=== PATIENT | male | born 1935 | race Caucasian/White ===

== ENCOUNTER 2018-12-30 15:11 | Emergency (ER) | payer MEDICARE, BC ==
--- NOTE | 2018-12-30 15:32 | EDM.PDOC ---
ED HPI GENERAL MEDICAL PROBLEM - General Chief Complaint: Back Pain or Injury Stated Complaint: BACK PAIN AFTER A FALL Time Seen by Provider: 12/30/18 15:20 Source of Information: Reports: Patient, Family History Limitations: Reports: Altered Mental Status (dementia) - History of Present Illness INITIAL COMMENTS - FREE TEXT/NARRATIVE: Porfirio comes into [facility] ED following a fall this afternoon while getting up from a chair. His can went in one direction, and he fell onto R CVA area, striking a coffee table on the way down. There was no LOC. He has pain and tenderness with visible ecchymoses. He has been given no meds. Porfirio has a hx of dementia and not a reliable historian. His spouse and daughter provide collateral information. RIGHT BACK Pain Score (Numeric/FACES): 3 - Related Data Allergies Allergy/AdvReac Type Severity Reaction Status Date / Time No Known Allergies Allergy Verified 12/30/18 15:47 Past Medical History Neurological History: Reports: Other (See Below) Other Neuro History: dementia - Past Surgical History Musculoskeletal Surgical History: Reports: Knee Replacement, Other (See Below) Other Musculoskeletal Surgeries/Procedures:: R TKA ~12 yrs ago. R femur fx 30+ yrs ago requiring traction and resulted in 3" shortening of RLE. L hip pinning 07-23-17 ED ROS GENERAL - Review of Systems Review Of Systems: ROS reveals no pertinent complaints other than HPI. ED EXAM, GENERAL - Physical Exam Exam: See Below Exam Limited By: Altered Mental Status (dementia) General Appearance: Alert, WD/WN, No Apparent Distress, Other (subdued behavior) Eye Exam: Bilateral Eye: EOMI, Normal Inspection, PERRL Ears: Normal External Exam Nose: Normal Inspection Throat/Mouth: Normal Inspection Head: Atraumatic, Normocephalic Neck: Normal Inspection, Non-Tender, Full Range of Motion Respiratory/Chest: No Respiratory Distress, No Accessory Muscle Use, Decreased Breath Sounds, Other (tenderness overly R CVA with visible ecchymoses, no crepitus) Cardiovascular: Regular Rate, Rhythm, No Murmur GI/Abdominal: Normal Bowel Sounds, Soft, Non-Tender, No Organomegaly, No Distention, No Mass (Male) Exam: Deferred Rectal (Males) Exam: Deferred Back Exam: CVA Tenderness (R) Extremities: Normal Inspection Neurological: Alert, CN II-XII Intact, No Motor/Sensory Deficits, Slow to Respond, Memory Loss Remote Events, Memory Loss Recent Events Psychiatric: Flat Affect Skin Exam: Warm, Dry, Ecchymosis Lymphatic: No Adenopathy Course - Vital Signs Text/Narrative:: Following assessment, I reviewed R rib detail x rays noting fx at #9,#10, with normal cardiac profile and lungs fully expanded. The screening UA was neg for hematuria. Last Recorded V/S: Last Vital Signs Temp 36.8 C 12/30/18 15:15 Pulse 57 L 12/30/18 15:15 Resp 15 12/30/18 15:15 BP 116/62 12/30/18 15:15 Pulse Ox 97 12/30/18 15:15 - Orders/Labs/Meds Orders: Active Orders 24 hr Category Date Time Status Ribs 3V wo Chest Rt [CR] Stat Exams 12/30/18 15:29 Taken Labs: Laboratory Tests 12/30/18 Range/Units 16:55 Urine Color Yellow (YELLOW) Urine Appearance Clear (CLEAR) Urine pH 5.0 (5.0-6.5) Ur Specific [place] 1.015 (1.010-1.025) Urine Protein Negative (NEGATIVE) mg/dL Urine Glucose (UA) Normal (NORMAL) mg/dL Urine Ketones Negative (NEGATIVE) mg/dL Urine Occult Blood Negative (NEGATIVE) Urine Nitrite Negative (NEGATIVE) Urine Bilirubin Negative (NEGATIVE) Urine Urobilinogen Normal (NEGATIVE) mg/dL Ur Leukocyte Esterase Negative (NEGATIVE) Urine RBC 0-5 (0-5) Urine WBC 0-5 (0-5) Ur Squamous Epith Cells Occasional (NS,R,O) Urine Bacteria Few H (NS) Urine Mucus Few H (NS) Departure - Departure Time of Disposition: 17:00 Disposition: Home, Self-Care 01 Condition: Fair Clinical Impression: Multiple rib fractures Qualifiers: Encounter type: initial encounter Fracture type: closed Laterality: right Qualified Code(s): S22.41XA - Multiple fractures of ribs, right side, initial encounter for closed fracture - Discharge Information *PRESCRIPTION DRUG MONITORING PROGRAM REVIEWED*: Not Applicable *COPY OF PRESCRIPTION DRUG MONITORING REPORT IN PATIENT ALEXANDER: Not Applicable Instructions: Rib Fracture, [id number] Referrals: Kishor Candelario MD [Primary Care Provider] - Forms: ED Department Discharge Additional Instructions: HE HAS RIB FRACTURE OF RIB 9&10 ON THE RT SIDE. TAKE TYLENOL OR IBUPROFEN NECESSARY FOR PAIN. - Problem List & Annotations (1) Multiple rib fractures SNOMED Code(s): 8093659 Code(s): S22.49XA - MULTIPLE FRACTURES OF RIBS, UNSP SIDE, INIT FOR CLOS FX Status: Acute Current Visit: Yes Annotation/Comment:: I suggested ice packs for comfort, Tylenol or NSAIDs for pain, and rest. Qualifiers: Encounter type: initial encounter Fracture type: closed Laterality: right Qualified Code(s): S22.41XA - Multiple fractures of ribs, right side, initial encounter for closed fracture - Problem List Review Problem List Initiated/Reviewed/Updated: Yes - My Orders Last 24 Hours: My Active Orders 12/30/18 15:29 Ribs 3V wo Chest Rt [CR] Stat - Assessment/Plan Last 24 Hours: My Active Orders 12/30/18 15:29 Ribs 3V wo Chest Rt [CR] Stat Plan: Follow up with PCP if needed.
== END 2018-12-30 17:20 | disposition home or self-care (01) ==
LOC: FB.ED 15:11
DX: S22.41XA Multiple fractures of ribs, right side, initial encounter for closed fracture (principal); F03.90 Unspecified dementia, unspecified severity, without behavioral disturbance, psychotic disturbance, mood disturbance, and anxiety; W01.198A Fall on same level from slipping, tripping and stumbling with subsequent striking against other object, initial encounter
CPT/HCPCS: 71101-RT; 81001; 99283-25

== ENCOUNTER 2019-09-29 10:40 | Emergency (ER) | payer MEDICARE, BC ==
[2019-09-29] MEDS ORDERED: Sodium Chloride 0.9% 10 ML Syringe FLUSH PRN (11:16)
[2019-09-29] MEDS ORDERED: Ketorolac 15 MG/ML SDV IVPUSH STA (11:18)
[2019-09-29] MEDS ORDERED: Sodium Chloride 0.9% 1,000 ML IV SCH (11:30)
[2019-09-29] MEDS ORDERED: Ketorolac 30 MG/ML SDV IVPUSH ONE (11:50)
--- NOTE | 2019-09-29 12:31 | EDM.PDOC ---
ED HPI GENERAL MEDICAL PROBLEM - General Chief Complaint: Head Injury Stated Complaint: HEAD INJURY,ABD PAIN Time Seen by Provider: 09/29/19 10:45 Source of Information: Reports: Patient History Limitations: Reports: No Limitations - History of Present Illness INITIAL COMMENTS - FREE TEXT/NARRATIVE: Patient presented to the ED because he tripped and fell 3 days ago and hit the left side of his head on the floor. The is no LOC after the fall. He c/o mild headache over the left parietal area. Today he c/o LLQ pain,denies any nausea or vomiting. There is no changes in bowel movements or urinary symptoms. - Related Data Allergies Allergy/AdvReac Type Severity Reaction Status Date / Time No Known Allergies Allergy Verified 09/29/19 11:00 Home Meds: Home Meds Aspirin [Halfprin] 81 mg PO DAILY 09/29/19 [History] Calcium Carbonate [Calcium] 500 mg PO DAILY 09/29/19 [History] Cholecalciferol (Vitamin D3) [Vitamin D3] 1,000 unit PO DAILY 09/29/19 [History] Donepezil HCl 10 mg PO BEDTIME 09/29/19 [History] Furosemide [Lasix] 20 mg PO DAILY 09/29/19 [History] Memantine HCl 21 mg PO BEDTIME 09/29/19 [History] Metoprolol Tartrate 50 mg PO DAILY 09/29/19 [History] Sennosides [Senna] 8.6 mg PO BID 09/29/19 [History] Tamsulosin [Flomax] 0.4 mg PO DAILY 09/29/19 [History] Past Medical History HEENT History: Reports: Head Other HEENT History: head injury post fall Cardiovascular History: Reports: Hypertension Gastrointestinal History: Reports: Other (See Below) Other Gastrointestinal History: abdominal pain Neurological History: Reports: Other (See Below) Other Neuro History: dementia Psychiatric History: Reports: Dementia - Past Surgical History Musculoskeletal Surgical History: Reports: Knee Replacement, Other (See Below) Other Musculoskeletal Surgeries/Procedures:: R TKA ~12 yrs ago. R femur fx 30+ yrs ago requiring traction and resulted in 3" shortening of RLE. L femur pinning 07-23-17 Social & Family History - Family History Family Medical History: Unobtainable - Tobacco Use Smoking Status *Q: Never Smoker Second Hand Smoke Exposure: No - Caffeine Use Caffeine Use: Reports: Coffee - Recreational Drug Use Recreational Drug Use: No ED ROS GENERAL - Review of Systems Review Of Systems: See Below Constitutional: Reports: No Symptoms HEENT: Reports: No Symptoms Respiratory: Reports: No Symptoms Cardiovascular: Reports: No Symptoms Endocrine: Reports: No Symptoms GI/Abdominal: Reports: No Symptoms : Reports: No Symptoms Musculoskeletal: Reports: No Symptoms Skin: Reports: No Symptoms Neurological: Reports: No Symptoms Psychiatric: Reports: No Symptoms ED EXAM, HEAD INJURY - Physical Exam Exam: See Below Exam Limited By: No Limitations General Appearance: Alert, No Apparent Distress Head: Atraumatic, Normocephalic Ears: Normal External Exam, Normal Canal, Hearing Grossly Normal Nose: Normal Inspection, Normal Mucousa, No Blood Throat/Mouth: Normal Inspection, Normal Lips Neck: Non-Tender, Full Range of Motion Respiratory: No Respiratory Distress, Lungs Clear, Normal Breath Sounds, No Accessory Muscle Use Cardiovascular: Normal Peripheral Pulses, Regular Rate, Rhythm, No Edema GI/Abdominal Exam: Normal Bowel Sounds, Soft, No Organomegaly, Other ( tenderness over the LLQ) Back Exam: Normal Inspection, Full Range of Motion Extremities: Normal Inspection, Normal Range of Motion Course - Vital Signs Text/Narrative:: Headt CT-neg Abd/pevis CT- labs and CT result was discussed with patient and verbalized full understanding NS 1 L bolus Last Recorded V/S: Last Vital Signs Temp 36.4 C 09/29/19 14:30 Pulse 54 L 09/29/19 14:30 Resp 21 H 09/29/19 14:30 BP 138/59 L 09/29/19 14:30 Pulse Ox 96 09/29/19 14:30 - Orders/Labs/Meds Labs: Laboratory Tests 09/29/19 09/29/19 09/29/19 Range/Units 11:31 11:31 11:31 WBC 5.5 (4.5-12.0) X10-3/uL RBC 4.05 L (4.30-5.75) x10(6)uL Hgb 12.5 L (13.5-17.8) g/dL Hct 36.7 (30.0-51.3) % MCV 90.5 (80-96) fL MCH 30.9 (27.7-33.6) pg MCHC 34.1 (32.2-35.4) g/dL RDW 15.2 (11.5-15.5) % Plt Count 189 (125-369) X10(3)uL MPV 6.7 L (7.4-10.4) fL Neut % (Auto) 68.7 (46-82) % Lymph % (Auto) 15.2 (13-37) % [place] % (Auto) 13.6 H (4-12) % Eos % (Auto) 2 (1.0-5.0) % Baso % (Auto) 1 (0-2) % Neut # (Auto) 3.9 (1.6-8.3) # Lymph # (Auto) 0.8 (0.6-5.0) # [place] # (Auto) 0.7 (0.0-1.3) # Eos # (Auto) 0.1 (0.0-0.8) # Baso # (Auto) 0.0 (0.0-0.2) # Sodium 141 (135-145) mmol/L Potassium 4.4 (3.5-5.3) mmol/L Chloride 103 (100-110) mmol/L Carbon Dioxide 27 (21-32) mmol/L BUN 19 H (7-18) mg/dL Creatinine 1.6 H (0.70-1.30) mg/dL Est Cr Clr Drug Dosing 37.45 mL/min Estimated GFR (MDRD) 41 L (>60) BUN/Creatinine Ratio 11.9 (9-20) Glucose 96 (80-116) mg/dL Calcium 8.7 (8.6-10.2) mg/dL Total Bilirubin 0.6 (0.1-1.3) mg/dL AST 19 (5-25) IU/L ALT 15 (12-36) U/L Alkaline Phosphatase 69 (56-112) IU/L Total Protein 7.4 (6.0-8.0) g/dL Albumin 3.3 (3.2-4.6) g/dL Globulin 4.1 g/dL Albumin/Globulin Ratio 0.8 Amylase 86 (25-115) U/L Lipase 228 (73-393) U/L Urine Color (YELLOW) Urine Appearance (CLEAR) Urine pH (5.0-6.5) Ur Specific [place] (1.010-1.025) Urine Protein (NEGATIVE) mg/dL Urine Glucose (UA) (NORMAL) mg/dL Urine Ketones (NEGATIVE) mg/dL Urine Occult Blood (NEGATIVE) Urine Nitrite (NEGATIVE) Urine Bilirubin (NEGATIVE) Urine Urobilinogen (NEGATIVE) mg/dL Ur Leukocyte Esterase (NEGATIVE) Urine RBC (0-5) Urine WBC (0-5) Ur Squamous Epith Cells (NS,R,O) Urine Bacteria (NS) Urine Mucus (NS) 09/29/19 Range/Units 12:00 WBC (4.5-12.0) X10-3/uL RBC (4.30-5.75) x10(6)uL Hgb (13.5-17.8) g/dL Hct (30.0-51.3) % MCV (80-96) fL MCH (27.7-33.6) pg MCHC (32.2-35.4) g/dL RDW (11.5-15.5) % Plt Count (125-369) X10(3)uL MPV (7.4-10.4) fL Neut % (Auto) (46-82) % Lymph % (Auto) (13-37) % [place] % (Auto) (4-12) % Eos % (Auto) (1.0-5.0) % Baso % (Auto) (0-2) % Neut # (Auto) (1.6-8.3) # Lymph # (Auto) (0.6-5.0) # [place] # (Auto) (0.0-1.3) # Eos # (Auto) (0.0-0.8) # Baso # (Auto) (0.0-0.2) # Sodium (135-145) mmol/L Potassium (3.5-5.3) mmol/L Chloride (100-110) mmol/L Carbon Dioxide (21-32) mmol/L BUN (7-18) mg/dL Creatinine (0.70-1.30) mg/dL Est Cr Clr Drug Dosing mL/min Estimated GFR (MDRD) (>60) BUN/Creatinine Ratio (9-20) Glucose (80-116) mg/dL Calcium (8.6-10.2) mg/dL Total Bilirubin (0.1-1.3) mg/dL AST (5-25) IU/L ALT (12-36) U/L Alkaline Phosphatase (56-112) IU/L Total Protein (6.0-8.0) g/dL Albumin (3.2-4.6) g/dL Globulin g/dL Albumin/Globulin Ratio Amylase (25-115) U/L Lipase (73-393) U/L Urine Color Yellow (YELLOW) Urine Appearance Clear (CLEAR) Urine pH 6.5 (5.0-6.5) Ur Specific [place] 1.010 (1.010-1.025) Urine Protein Negative (NEGATIVE) mg/dL Urine Glucose (UA) Normal (NORMAL) mg/dL Urine Ketones Negative (NEGATIVE) mg/dL Urine Occult Blood Negative (NEGATIVE) Urine Nitrite Negative (NEGATIVE) Urine Bilirubin Negative (NEGATIVE) Urine Urobilinogen Normal (NEGATIVE) mg/dL Ur Leukocyte Esterase Negative (NEGATIVE) Urine RBC 0-5 (0-5) Urine WBC 0-5 (0-5) Ur Squamous Epith Cells Occasional (NS,R,O) Urine Bacteria Few H (NS) Urine Mucus Moderate H (NS) Meds: Medications Discontinued Medications Generic Name Dose Route Start Last Admin Trade Name Freq PRN Reason Stop Dose Admin Sodium Chloride 1,000 mls @ 999 mls/hr 09/29/19 11:30 09/29/19 11:40 Normal Saline IV 999 mls/hr ASDIRECTED HUBERT Administration Iopamidol 100 ml 09/29/19 13:25 09/29/19 13:42 Isovue-370 (76%) IV 09/29/19 13:26 95 ml ONETIME ONE Administration Ketorolac Tromethamine 15 mg 09/29/19 11:18 09/29/19 11:53 Toradol IVPUSH 09/29/19 11:19 Not Given NOW STA Ketorolac Tromethamine 15 mg 09/29/19 11:50 09/29/19 11:55 Toradol IVPUSH 09/29/19 11:51 15 mg ONETIME ONE Administration Sodium Chloride 10 ml 09/29/19 11:16 09/29/19 11:40 Saline Flush FLUSH 10 ml ASDIRECTED PRN Administration Keep Vein Open Departure - Departure Time of Disposition: 14:15 Disposition: Home, Self-Care 01 Condition: Good Clinical Impression: Closed head injury, Abdominal muscle strain - Discharge Information Instructions: Head Injury, Adult, Abdominal Pain, Adult, [id number] Referrals: Andree,Kishor, MD [Primary Care Provider] - Forms: ED Department Discharge Additional Instructions: read discharge instructions on headache and abdominal muscle strain take tylenol 1000 mg every 8 hours as needed for pain follow up as needed Sepsis Event Note - Evaluation Sepsis Screening Result: No Definite Risk - Focused Exam Date Exam was Performed: 09/30/19 Time Exam was Performed: 13:16
[2019-09-29] MEDS ORDERED: Iopamidol 755 Mg/ML 100 ML Bottle IV ONE (13:25)
--- NOTE | 2019-09-29 13:51 | CT ---
INDICATION: Fall, confusion, head injury 3 days prior, hit above left ear. CT HEAD WITHOUT CONTRAST: Spiral 3.75 mm axial sections were obtained through the brain without contrast with sagittal and coronal reconstructions 09/29/2019 - no comparisons. Total exam DLP was 2649.66 mGy-cm. No evidence of a cranial fracture site is noted. Paranasal sinuses and mastoid air cells were fairly well aerated with one opacified ethmoidal air cell on the left of questionable significance. The orbits appear to be intact. A small scalp hematoma is noted in the posterior left parietal area. Calcifications are noted in the left vertebral and internal carotid arteries. The ventricles are prominent compatible with central atrophy. The cortical sulci was somewhat prominent in the parietal lobe area compatible with central and cortical atrophy. There is suggestion of some very minimal indistinct areas of decreased in the white matter suggesting a mild degree of microvascular disease. No definite acute intracranial abnormality was identified - no bleeding site or hematoma was seen. IMPRESSION: 1. No acute intracranial abnormality identified. 2. Cerebrovascular disease is suggested with a mild degree of microvascular disease type changes. 3. Central and parietal cortical atrophy. Report was called to at 1323 hours. [facility]
--- NOTE | 2019-09-29 14:40 | CT ---
INDICATION: Left lower quadrant pain after trauma - fall. CT ABDOMEN AND PELVIS WITH IV CONTRAST: Spiral 3.75 mm axial sections were obtained through the abdomen and pelvis with 100 cc Isovue 370 (at 1.8 cc per second) with sagittal and coronal reconstructions 09/29/2019 - no comparisons. Total exam DLP was 1683.65 mGy-cm. Pleuroparenchymal changes noted at both lung bases which may represent pneumonia and pleuritis and possibly fibrosis - correlate clinically. The presence of consolidation is more prominent at the left lung base. There are calcifications at the left lung base, the possibility of process such as asbestosis would a consideration with this appearance. It should be correlated clinically. Multiple low density lesions are noted in the liver most likely representing simple cysts. No gallstones were demonstrated - the gallbladder was not enlarged. The adrenal glands appeared normal. The spleen and pancreas appeared normal. There is a probable simple cyst arising from the upper middle pole lateral cortex of the left kidney, mostly exophytic most likely representing a simple cyst. A followup study may be warranted to exclude other than benign disease, however. There is fat stranding of minimal degree on the right and for the most part on the left with slightly more prominent fat stranding at the left lower pole of the kidney. No definite posttraumatic change is seen in the kidneys. spleen or pancreas. No retroperitoneal masses were identified. The appendix appeared normal visualized on coronal images 45 through 48 and axial images 101 through 109. Calcifications are noted in the aorta, iliac and right femoral arteries, as well as minimally in the splenic artery. No evidence of free air or bowel obstruction was identified. No posttraumatic changes in the bowel were identified. Minimal sigmoid diverticulosis is noted without definite evidence of diverticulitis. The urinary bladder showed evidence of thickening of the wall. There is some minimal calcification in the prostate which does not appear grossly enlarged. There are some phleboliths in the lower pelvis. Bilateral inguinal hernias of small size are noted including only fat. No ventral hernia was seen. The heart appeared enlarged. No pericardial effusion was seen. Coronary artery calcifications are noted. Aortic valve calcifications are noted. No evidence of AAA is identified. Hypertrophic degenerative changes are noted in the thoracolumbosacral spine with a compression fracture of indeterminate age at L1 with approximately 40% loss of cranial endplate and anterior volume. No additional mass lesions, organomegaly or free fluid collections were identified in the abdomen pelvis. IMPRESSION: 1. Bibasilar pleuroparenchymal changes may be on the basis of pneumonia and pleuritis, although some atelectasis and fibrosis could also be present. 2. ASD/ASHD. 3. Renal fascial thickening suggesting some renal cortical scarring with no obstructive uropathy or definite calculi - small cyst noted on the left, likely simple but could be reexamined to confirm simple cyst status. 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 5. Some thickening of the urinary bladder wall which could represent cystitis, it should be correlated clinically. 6. Bilateral inguinal hernias of small size including only fat. 7. Degenerative changes at the hip joints, moderately severe on the right, milder on the left. 8. No findings to strongly suggest an acute posttraumatic change in the abdomen or pelvis. Report was called to Dr. Qureshi at 1405 hours. [facility]
== END 2019-09-29 14:30 | disposition home or self-care (01) ==
LOC: FB.ED 10:40
DX: S09.90XA Unspecified injury of head, initial encounter (principal); S39.011A Strain of muscle, fascia and tendon of abdomen, initial encounter; Z79.82 Long term (current) use of aspirin; I10 Essential (primary) hypertension; Z79.899 Other long term (current) drug therapy; W01.0XXA Fall on same level from slipping, tripping and stumbling without subsequent striking against object, initial encounter
CPT/HCPCS: 36415; 70450; 74177; 80053; 81001; 82150; 83690; 85025; 96361; 96374; 99284; J1885; J7030; Q9967; 99283

== ENCOUNTER 2020-04-23 13:18 | Inpatient (IN) | payer MEDICARE, BC ==
--- NOTE | 2020-04-23 13:45 | EDM.PDOC ---
ED HPI GENERAL MEDICAL PROBLEM - General Stated Complaint: FALL X2DAYS Time Seen by Provider: 04/23/20 13:40 Source of Information: Reports: EMS, Family History Limitations: Reports: Other (Patient with dementia and cannot provide me with any information.) - History of Present Illness INITIAL COMMENTS - FREE TEXT/NARRATIVE: 84-year-old male who according to the has had progressive weakness over the past 2 weeks. He apparently has had multiple falls during this time. The reports that he has dementia and his confusion and dementia has not really seemed to worsen but over the summer he has had a decline in his mobility with the most significant decline being over the past 2 weeks. She is his primary caregiver and she has found it increasingly difficult to help him ambulate to the bathroom and helping him with his ADLs. Apparently on 04/21/2020, he fell in the garage after they had gone to the clinic to get a flu vaccine and he struck his head. There was a laceration to the occiput but they treated it conservatively and she reports that there has really been real change in his mental status but she also feels that over the past few days his mobility has worsened even more and she reports that she has reached a point where she does not feel that she can care for him at home. No reported fever. No nausea or vomiting. The patient has been eating and drinking normally. No reported pain. The patient denies any pain and he appears at a 0/10 level of pain by observation. The patient cannot provide me with any history. All of the history comes from the patient's . There are no other associated signs or symptoms. There are no other modifying factors. Onset: Other (Progressive weakness over the past 2 weeks with worsening weakness over the past 2 days. 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 (see below) (Nothing.) - Related Data Allergies Allergy/AdvReac Type Severity Reaction Status Date / Time No Known Allergies Allergy Verified 09/29/19 11:00 Home Meds: Home Meds Aspirin [Halfprin] 81 mg PO DAILY 09/29/19 [History] Calcium Carbonate [Calcium] 500 mg PO DAILY 09/29/19 [History] Cholecalciferol (Vitamin D3) [Vitamin D3] 1,000 unit PO DAILY 09/29/19 [History] Donepezil HCl 10 mg PO BEDTIME 09/29/19 [History] Furosemide [Lasix] 20 mg PO DAILY 09/29/19 [History] Memantine HCl 21 mg PO BEDTIME 09/29/19 [History] Metoprolol Tartrate 50 mg PO DAILY 09/29/19 [History] Sennosides [Senna] 8.6 mg PO BID 09/29/19 [History] Tamsulosin [Flomax] 0.4 mg PO DAILY 09/29/19 [History] Past Medical History Cardiovascular History: Reports: Hypertension Genitourinary History: Reports: BPH Musculoskeletal History: Reports: Other (See Below) (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 R femur fx 30+ yrs ago requiring traction and resulted in 3" shortening of RLE. L femur pinning 07-23-17 Social & Family History - Family History Family Medical History: Unobtainable - Tobacco Use Smoking Status *Q: Unknown Ever Smoked (Nonsmoker.) - Caffeine Use Caffeine Use: Reports: Coffee - Alcohol Use Alcohol Use History: No - Living Situation & Occupation Living situation: Reports: Occupation: Retired Social History Comment: Lives at home with his who is his primary caregiver. ED ROS GENERAL - Review of Systems Review Of Systems: Unable To Obtain (What has been obtained is from the and is in the history of present illness.) Reason Not Obtained: Dementia. ED EXAM, HEAD INJURY - Physical Exam Exam: See Below Exam Limited By: No Limitations General Appearance: Alert, WD/WN, No Apparent Distress Head: Scalp Lacerations, Scalp Ecchymosis Nexus Criteria: Altered Level of Consciousness (Patient with dementia) Eyes: Bilateral Eye: EOMI, Normal Inspection Ears: Normal External Exam, Hearing Grossly Normal Nose: Normal Inspection, Normal Mucousa, No Blood Throat/Mouth: Normal Inspection, Normal Oropharynx, Normal Voice, No Airway Compromise Neck: Non-Tender, Full Range of Motion, Normal Alignment, Normal Inspection Respiratory: No Respiratory Distress, Lungs Clear, Normal Breath Sounds, No Accessory Muscle Use, Chest Non-Tender Cardiovascular: Normal Peripheral Pulses, Regular Rate, Rhythm, No Murmur GI/Abdominal Exam: Normal Bowel Sounds, Soft, Non-Tender, No Mass Back Exam: Normal Inspection, Full Range of Motion Extremities: Normal Range of Motion, No Pedal Edema, Normal Capillary Refill, Other (Significant of the right lower extremity which is chronic. 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 As Tested, No Motor/Sensory Deficits, Alert, Other (Disoriented to place and time.) Skin: Normal Color, Warm/Dry - Summer Coma Score Best Eye Response (Summer): (4) Open Spontaneously Best Verbal Response (Summer): (4) Confused Conversation Best Motor Response ([place]): (6) Obeys Commands [place] Total: 14 Course - Vital Signs Last Recorded V/S: Last Vital Signs Temp 36.4 C 04/23/20 13:20 Pulse 58 L 04/23/20 13:20 Resp 18 04/23/20 13:20 BP 108/55 L 04/23/20 13:20 Pulse Ox 98 04/23/20 13:20 - Orders/Labs/Meds Orders: Active Orders 24 hr Category Date Time Status Admission Status [Patient Status] [ADT] Routine ADT 04/23/20 16:00 Ordered Insert Urinary Catheter [OM.PC] Q24H Care 04/23/20 14:30 Ordered Urinary Catheter Assessment [RC] QSHIFT Care 04/23/20 14:26 Active Vaccines to be Administered [RC] PER UNIT ROUTINE Care 04/23/20 16:01 Ordered Cervical Spine wo Cont [CT] Stat Exams 04/23/20 14:25 Ordered Chest 1V Frontal [CR] Stat Exams 04/23/20 14:27 Taken Head wo Cont [CT] Stat Exams 04/23/20 14:25 Taken CULTURE URINE [RM] Stat Lab 04/23/20 14:27 Ordered UA W/MICROSCOPIC [URIN] Stat Lab 04/23/20 14:25 Ordered Diphth,Pertuss(Acell),Tet Vac [Adacel] Med 04/23/20 16:01 Once 0.5 ml IM .ONCE ONE Labs: Laboratory Tests 04/23/20 04/23/20 04/23/20 Range/Units 15:05 15:05 15:05 WBC 5.5 (4.5-12.0) X10-3/uL RBC 3.77 L (4.30-5.75) x10(6)uL Hgb 11.9 L (13.5-17.8) g/dL Hct 34.0 (30.0-51.3) % MCV 90.2 (80-96) fL MCH 31.5 (27.7-33.6) pg MCHC 34.9 (32.2-35.4) g/dL RDW 15.8 H (11.5-15.5) % Plt Count 166 (125-369) X10(3)uL MPV 6.8 L (7.4-10.4) fL Neut % (Auto) 70.4 (46-82) % Lymph % (Auto) 13.9 (13-37) % [place] % (Auto) 12.8 H (4-12) % Eos % (Auto) 3 (1.0-5.0) % Baso % (Auto) 0 (0-2) % Neut # (Auto) 3.9 (1.6-8.3) # Lymph # (Auto) 0.8 (0.6-5.0) # [place] # (Auto) 0.7 (0.0-1.3) # Eos # (Auto) 0.1 (0.0-0.8) # Baso # (Auto) 0.0 (0.0-0.2) # Sodium 135 (135-145) mmol/L Potassium 4.2 (3.5-5.3) mmol/L Chloride 100 (100-110) mmol/L Carbon Dioxide 26 (21-32) mmol/L BUN 22 H (7-18) mg/dL Creatinine 1.8 H (0.70-1.30) mg/dL Est Cr Clr Drug Dosing TNP Estimated GFR (MDRD) 36 L (>60) BUN/Creatinine Ratio 12.2 (9-20) Glucose 98 (80-116) mg/dL Calcium 8.7 (8.6-10.2) mg/dL Total Bilirubin 0.8 (0.1-1.3) mg/dL AST 17 D (5-25) IU/L ALT 13 D (12-36) U/L Alkaline Phosphatase 59 (56-112) IU/L C-Reactive Protein 2.3 H (0.5-0.9) mg/dL Total Protein 7.4 (6.0-8.0) g/dL Albumin 3.4 (3.2-4.6) g/dL Globulin 4.0 g/dL Albumin/Globulin Ratio 0.9 - Radiology Interpretation Free Text/Narrative:: Portable chest x-ray shows no acute disease per the [facility] radiologist. CT scan of the head shows no bleeding or fracture per the [facility] radiologist. 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 - Re-Assessments/Exams Free Text/Narrative Re-Assessment/Exam: 04/23/20 15:45: The patient's chest x-ray was normal. The CT scans of his head and neck show no acute abnormalities. Patient's blood tests are essentially unchanged from previous. A urinalysis is pending at this point. The patient does however have rapidly progressive weakness and ambulatory dysfunction and with his frequent falls not safely be discharged home. The urinalysis is pending and there could be a urinary tract infection. The patient will need admission to the hospital and he will need a greater then 2 midnight hospital stay to complete his plan of care. He will most probably need intermediate placement. I have discussed this with the patient's and she would be in agreement with this plan for admission. I will call and discuss the patient's case with Dr. Wilks. 04/23/20 16:00: I have discussed the patient's case with Dr. Wilks, hospitalist at [facility], and she has agreed to admit the patient. Departure - Departure Time of Disposition: 16:02 Disposition: Admitted As Inpatient 64 Condition: Fair (Stable) Clinical Impression: Ambulatory dysfunction, Rapidly progressive weakness, Multiple falls Closed head injury Qualifiers: Encounter type: initial encounter Qualified Code(s): S09.90XA - Unspecified injury of head, initial encounter - Discharge Information Referrals: Kishor Candelario MD [Primary Care Provider] - Sepsis Event Note (ED) - Focused Exam Vital Signs: Vital Signs Temp Pulse Resp BP Pulse Ox 04/23/20 13:20 36.4 C 58 L 18 108/55 L 98 - My Orders Last 24 Hours: My Active Orders 04/23/20 14:25 Cervical Spine wo Cont [CT] Stat Head wo Cont [CT] Stat UA W/MICROSCOPIC [URIN] Stat 04/23/20 14:26 Urinary Catheter Assessment [RC] QSHIFT 04/23/20 14:27 Chest 1V Frontal [CR] Stat CULTURE URINE [RM] Stat 04/23/20 14:30 Insert Urinary Catheter [OM.PC] Q24H 04/23/20 16:00 Admission Status [Patient Status] [ADT] Routine 04/23/20 16:01 Vaccines to be Administered [RC] PER UNIT ROUTINE Diphth,Pertuss(Acell),Tet Vac [Adacel] 0.5 ml IM .ONCE ONE - Assessment/Plan Last 24 Hours: My Active Orders 04/23/20 14:25 Cervical Spine wo Cont [CT] Stat Head wo Cont [CT] Stat UA W/MICROSCOPIC [URIN] Stat 04/23/20 14:26 Urinary Catheter Assessment [RC] QSHIFT 04/23/20 14:27 Chest 1V Frontal [CR] Stat CULTURE URINE [RM] Stat 04/23/20 14:30 Insert Urinary Catheter [OM.PC] Q24H 04/23/20 16:00 Admission Status [Patient Status] [ADT] Routine 04/23/20 16:01 Vaccines to be Administered [RC] PER UNIT ROUTINE Diphth,Pertuss(Acell),Tet Vac [Adacel] 0.5 ml IM .ONCE ONE
[2020-04-23] MEDS ORDERED: Diphtheria,Pertussis(Acell),Tetanus Vaccine 0.5 ML SDV IM ONE (16:01)
[2020-04-23] MEDS ORDERED: Sodium Chloride 0.9% 10 ML Syringe FLUSH PRN (17:07)
--- NOTE | 2020-04-23 17:12 | PCM.HP.2 ---
H&P History of Present Illness - General Date of Service: 04/23/20 Admit Problem/Dx: Admission Diagnosis/Problem Admission Diagnosis/Problem Ambulatory dysfunction Source of Information: Patient, EMS Notes Reviewed, Family, Provider - History of Present Illness Initial Comments - Free Text/Narative: Porfirio presented to ER brought by his for progressive decline for the past 2 weeks, has had more falls. Went to [facility] on , had flu shot, ears checked, cerumen impaction advised to use baby oil and return next week for recheck. Discussion was made with PCP about intermediate due to his progressing decline and becoming more than what his can handle. She is his primary behavioral health care coordinator, 3 children live close by and their son has stopped by the past few days to help her get him up. She stated that at the clinic visit she did not want intermediate placement but when they got home, he fell in the garage. He had superficial laceration to crown of his head, treated with steri-strips. He denies any pain, always cold. No fevers, chills, cough, nausea, vomiting, diarrhea or rash. He tends to be on constipated side on stool softeners. Urination has been decreasing. He is hard of hearing has not been wearing hearing aids due to the build up of ear wax. No dentures. His does his dressing, bathing(sponge baths), medications, finances, makes his meals. He has been eating smaller amounts over the past few months, drinks very little, he does feed himself. Uses a front wheel walker at home, goes to the bathroom, lift chair and bed; she states that is the limit of his activity. He does sleep quite a bit, will sleep all night, takes naps after breakfast and lunch. He is not on any medications for depression, anxiety or any behaviors with his dementia on Aricept and Namenda. On Flomax for prostatic hypertrophy. He wears incontinent briefs so she does not have to get him up at night. Majority of history is obtained from ER provider and his . - Related Data Allergies/Adverse Reactions: Allergies Allergy/AdvReac Type Severity Reaction Status Date / Time No Known Allergies Allergy Verified 04/23/20 16:22 Home Medications: Home Meds Aspirin [Halfprin] 81 mg PO DAILY 09/29/19 [History] Calcium Carbonate [Calcium] 500 mg PO DAILY 09/29/19 [History] Cholecalciferol (Vitamin D3) [Vitamin D3] 1,000 unit PO DAILY 09/29/19 [History] Donepezil HCl 10 mg PO BEDTIME 09/29/19 [History] Furosemide [Lasix] 20 mg PO DAILY 09/29/19 [History] Memantine HCl 21 mg PO BEDTIME 09/29/19 [History] Metoprolol Tartrate 25 mg PO DAILY 09/29/19 [History] Sennosides [Senna] 8.6 mg PO BID 09/29/19 [History] Tamsulosin [Flomax] 0.4 mg PO BEDTIME 09/29/19 [History] Past Medical History HEENT History: Reports: Head Other HEENT History: head injury post fall Cardiovascular History: Reports: Hypertension Gastrointestinal History: Reports: Other (See Below) Other Gastrointestinal History: abdominal pain Genitourinary History: Reports: BPH Musculoskeletal History: Reports: Other (See Below) (Chronic right leg sh ortening status post surgical procedure for fracture) Neurological History: Reports: Other (See Below) Other Neuro History: dementia Psychiatric History: Reports: Dementia - Past Surgical History Musculoskeletal Surgical History: Reports: Knee Replacement, Other (See Below) Other Musculoskeletal Surgeries/Procedures:: R TKA ~12 yrs ago. R femur fx 30+ yrs ago requiring traction and resulted in 3" shortening of RLE. L femur pinning 07-23-17 Social & Family History - Family History Family Medical History: Unobtainable - Tobacco Use Smoking Status *Q: Unknown Ever Smoked (Nonsmoker.) - Caffeine Use Caffeine Use: Reports: Coffee - Living Situation & Occupation Living situation: Reports: Occupation: Retired H&P Review of Systems - Review of Systems: Review Of Systems: Comprehensive ROS is negative, except as noted in HPI. Exam - Exam Exam: See Below - Vital Signs Vital Signs: Last Vital Signs Temp 97.6 F 04/23/20 13:20 Pulse 58 L 04/23/20 13:20 Resp 18 04/23/20 13:20 BP 108/55 L 04/23/20 13:20 Pulse Ox 98 04/23/20 13:20 - Exam General: Alert, Oriented (person), Cooperative HEENT: PERRLA, Conjunctiva Clear, Mucosa Moist & [place], Posterior Pharynx Clear. No: Hearing Intact, TMs Clear Neck: Supple, Trachea Midline. No: Lymphadenopathy Lungs: Clear to Auscultation, Normal Respiratory Effort Cardiovascular: Regular Rate, Regular Rhythm GI/Abdominal Exam: Normal Bowel Sounds, Soft, Non-Tender, No Distention (Male) Exam: Deferred Rectal (Males) Exam: Deferred Extremities: No Pedal Edema. No: Joint Swelling, Leg Pain, Redness Peripheral Pulses: 2+: Radial (L), Radial (R), Posterior Tibial (L), Posterior Tibial (R), Dorsalis Pedis (L), Dorsalis Pedis (R) Skin: Warm, Dry, Intact, Wound (4 cm superficial linear laceration top of scalp, steri-strips in place, dried blood present.), Other (surgical scar to right knee) Neurological: Cranial Nerves Intact Neuro Extensive - Mental Status: Disorientation to Place, Disorientation to Time, Memory Loss-Recent Events, Slow Response to Commands - Patient Data Lab Results Last 24 hrs: Laboratory Results - last 24 hr 04/23/20 04/23/20 04/23/20 Range/Units 15:05 15:05 15:05 WBC 5.5 (4.5-12.0) X10-3/uL RBC 3.77 L (4.30-5.75) x10(6)uL Hgb 11.9 L (13.5-17.8) g/dL Hct 34.0 (30.0-51.3) % MCV 90.2 (80-96) fL MCH 31.5 (27.7-33.6) pg MCHC 34.9 (32.2-35.4) g/dL RDW 15.8 H (11.5-15.5) % Plt Count 166 (125-369) X10(3)uL MPV 6.8 L (7.4-10.4) fL Neut % (Auto) 70.4 (46-82) % Lymph % (Auto) 13.9 (13-37) % [place] % (Auto) 12.8 H (4-12) % Eos % (Auto) 3 (1.0-5.0) % Baso % (Auto) 0 (0-2) % Neut # (Auto) 3.9 (1.6-8.3) # Lymph # (Auto) 0.8 (0.6-5.0) # [place] # (Auto) 0.7 (0.0-1.3) # Eos # (Auto) 0.1 (0.0-0.8) # Baso # (Auto) 0.0 (0.0-0.2) # Sodium 135 (135-145) mmol/L Potassium 4.2 (3.5-5.3) mmol/L Chloride 100 (100-110) mmol/L Carbon Dioxide 26 (21-32) mmol/L BUN 22 H (7-18) mg/dL Creatinine 1.8 H (0.70-1.30) mg/dL Est Cr Clr Drug Dosing TNP Estimated GFR (MDRD) 36 L (>60) BUN/Creatinine Ratio 12.2 (9-20) Glucose 98 (80-116) mg/dL Calcium 8.7 (8.6-10.2) mg/dL Total Bilirubin 0.8 (0.1-1.3) mg/dL AST 17 D (5-25) IU/L ALT 13 D (12-36) U/L Alkaline Phosphatase 59 (56-112) IU/L C-Reactive Protein 2.3 H (0.5-0.9) mg/dL Total Protein 7.4 (6.0-8.0) g/dL Albumin 3.4 (3.2-4.6) g/dL Globulin 4.0 g/dL Albumin/Globulin Ratio 0.9 Urine Color (YELLOW) Urine Appearance (CLEAR) Urine pH (5.0-6.5) Ur Specific [place] (1.010-1.025) Urine Protein (NEGATIVE) mg/dL Urine Glucose (UA) (NORMAL) mg/dL Urine Ketones (NEGATIVE) mg/dL Urine Occult Blood (NEGATIVE) Urine Nitrite (NEGATIVE) Urine Bilirubin (NEGATIVE) Urine Urobilinogen (NEGATIVE) mg/dL Ur Leukocyte Esterase (NEGATIVE) Urine RBC (0-5) Urine WBC (0-5) Ur Squamous Epith Cells (NS,R,O) Urine Bacteria (NS) 04/23/20 Range/Units 16:00 WBC (4.5-12.0) X10-3/uL RBC (4.30-5.75) x10(6)uL Hgb (13.5-17.8) g/dL Hct (30.0-51.3) % MCV (80-96) fL MCH (27.7-33.6) pg MCHC (32.2-35.4) g/dL RDW (11.5-15.5) % Plt Count (125-369) X10(3)uL MPV (7.4-10.4) fL Neut % (Auto) (46-82) % Lymph % (Auto) (13-37) % [place] % (Auto) (4-12) % Eos % (Auto) (1.0-5.0) % Baso % (Auto) (0-2) % Neut # (Auto) (1.6-8.3) # Lymph # (Auto) (0.6-5.0) # [place] # (Auto) (0.0-1.3) # Eos # (Auto) (0.0-0.8) # Baso # (Auto) (0.0-0.2) # Sodium (135-145) mmol/L Potassium (3.5-5.3) mmol/L Chloride (100-110) mmol/L Carbon Dioxide (21-32) mmol/L BUN (7-18) mg/dL Creatinine (0.70-1.30) mg/dL Est Cr Clr Drug Dosing Estimated GFR (MDRD) (>60) BUN/Creatinine Ratio (9-20) Glucose (80-116) mg/dL Calcium (8.6-10.2) mg/dL Total Bilirubin (0.1-1.3) mg/dL AST (5-25) IU/L ALT (12-36) U/L Alkaline Phosphatase (56-112) IU/L C-Reactive Protein (0.5-0.9) mg/dL Total Protein (6.0-8.0) g/dL Albumin (3.2-4.6) g/dL Globulin g/dL Albumin/Globulin Ratio Urine Color Yellow (YELLOW) Urine Appearance Clear (CLEAR) Urine pH 6.0 (5.0-6.5) Ur Specific [place] 1.015 (1.010-1.025) Urine Protein Negative (NEGATIVE) mg/dL Urine Glucose (UA) Normal (NORMAL) mg/dL Urine Ketones Negative (NEGATIVE) mg/dL Urine Occult Blood Negative (NEGATIVE) Urine Nitrite Negative (NEGATIVE) Urine Bilirubin Negative (NEGATIVE) Urine Urobilinogen Normal (NEGATIVE) mg/dL Ur Leukocyte Esterase Negative (NEGATIVE) Urine RBC 0-5 (0-5) Urine WBC 0-5 (0-5) Ur Squamous Epith Cells Rare (NS,R,O) Urine Bacteria Rare H (NS) Result Diagrams: 04/23/20 15:05 04/23/20 15:05 Sepsis Event Note - Evaluation Sepsis Screening Result: No Definite Risk - Focused Exam Vital Signs: Vital Signs Temp Pulse Resp BP Pulse Ox 04/23/20 13:20 97.6 F 58 L 18 108/55 L 98 - Problem List (1) Rapidly progressive weakness SNOMED Code(s): 15082179 ICD Code: R53.1 - WEAKNESS Status: Acute Current Visit: Yes (2) Ambulatory dysfunction SNOMED Code(s): 446616464 ICD Code: R26.2 - DIFFICULTY IN WALKING, NOT ELSEWHERE CLASSIFIED Status: Acute Current Visit: Yes (3) Closed head injury SNOMED Code(s): 278314934674 ICD Code: S09.90XA - UNSPECIFIED INJURY OF HEAD, INITIAL ENCOUNTER Status: Acute Current Visit: Yes Qualifiers: Encounter type: initial encounter Qualified Code(s): S09.90XA - Unspecified injury of head, initial encounter (4) Multiple falls SNOMED Code(s): 469907012 ICD Code: R29.6 - REPEATED FALLS Status: Acute Current Visit: Yes (5) Renal insufficiency SNOMED Code(s): 975703543, 068303884 ICD Code: N28.9 - DISORDER OF KIDNEY AND URETER, UNSPECIFIED Status: Acute Current Visit: Yes (6) Dehydration SNOMED Code(s): 55778043 ICD Code: E86.0 - DEHYDRATION Status: Acute Current Visit: Yes (7) Failure to thrive in adult SNOMED Code(s): 947038461 ICD Code: R62.7 - ADULT FAILURE TO THRIVE Status: Acute Current Visit: Yes (8) Cerumen impaction SNOMED Code(s): 52477663 ICD Code: H61.20 - IMPACTED CERUMEN, UNSPECIFIED EAR Status: Acute Current Visit: Yes Problem List Initiated/Reviewed/Updated: Yes Orders Last 24hrs: Active Orders 24 hr Category Date Time Status Admission Status [Patient Status] [ADT] Routine ADT 04/23/20 16:00 Active Oxygen Therapy [RC] PRN Care 04/23/20 17:07 Ordered Up With Assistance [RC] ASDIRECTED Care 04/23/20 17:07 Ordered Up to Chair [RC] ASDIRECTED Care 04/23/20 17:07 Ordered VTE/DVT Education [RC] Per Unit Routine Care 04/23/20 17:07 Ordered Vaccines to be Administered [RC] PER UNIT ROUTINE Care 04/23/20 16:01 Active Vital Signs [RC] QSHIFT Care 04/23/20 17:07 Ordered Consult to Case Management/Chimney Mechanic [CONS] Cons 04/23/20 17:07 Ordered Routine OT Evaluation and Treatment [CONS] Routine Cons 04/23/20 17:07 Ordered PT Evaluation and Treatment [CONS] Routine Cons 04/23/20 17:07 Ordered Regular Diet [DIET] Diet 04/23/20 Dinner Ordered Cervical Spine wo Cont [CT] Stat Exams 04/23/20 14:25 Ordered Chest 1V Frontal [CR] Stat Exams 04/23/20 14:27 Taken Head wo Cont [CT] Stat Exams 04/23/20 14:25 Taken BASIC METABOLIC PANEL,BMP [CHEM] Routine Lab 04/24/20 06:00 Ordered CULTURE URINE [RM] Stat Lab 04/23/20 16:00 Received Aspirin [Halfprin] Med 04/24/20 09:00 Ordered 81 mg PO DAILY Calcium Carbonate [Oyster Shell Calcium] Med 04/24/20 09:00 Ordered 500 mg PO DAILY Cholecalciferol (Vitamin D3) [Vitamin D3] Med 04/24/20 09:00 Ordered 1,000 unit PO DAILY Donepezil [Aricept] Med 04/23/20 21:00 Ordered 10 mg PO BEDTIME Furosemide [Lasix] Med 04/24/20 09:00 Ordered 20 mg PO DAILY Memantine [Namenda] Med 04/23/20 21:00 Ordered 21 mg PO BEDTIME Metoprolol Tartrate [Lopressor] Med 04/24/20 09:00 Ordered 25 mg PO DAILY Sennosides [Senna] Med 04/23/20 21:00 Ordered 8.6 mg PO BID Sodium Chloride 0.9% [Normal Saline] 1,000 ml Med 04/23/20 17:15 Ordered IV ASDIRECTED Sodium Chloride 0.9% [Saline Flush] Med 04/23/20 17:07 Ordered 10 ml FLUSH ASDIRECTED PRN Tamsulosin [Flomax] Med 04/23/20 21:00 Ordered 0.4 mg PO BEDTIME Antiembolic Hose [OM.PC] Per Unit Routine Oth 04/23/20 17:08 Ordered Saline Lock Insert [OM.PC] Routine Oth 04/23/20 17:07 Ordered Resuscitation Status Routine Resus Stat 04/23/20 17:07 Ordered Medication Orders Aspirin (Halfprin) 81 mg PO DAILY HUBERT Calcium Carbonate/Glycine (Oyster Shell Calcium) 500 mg PO DAILY HUBERT Sodium Chloride (Normal Saline) 1,000 mls @ 100 mls/hr IV ASDIRECTED HUBERT Non-Formulary Medication (Cholecalciferol (Vitamin D3) [Vitamin D3]) 1,000 unit PO DAILY HUBERT Sodium Chloride (Saline Flush) 10 ml FLUSH ASDIRECTED PRN PRN Reason: Keep Vein Open Assessment/Plan Comment:: 1. Admit for inpatient services for progressing weakness, frequent falls, dementia, most likely requiring more than 2 midnight stay for rehab services and NH placement. 2. UA is pending, Urine culture ordered, will adjust treatment as necessary. 3. Renal insufficiency, most likely secondary to dehydration. Cr 1.8, NS at 100 ml/hr repeat BMP in am. 4. Regular diet. 5. Activity: up to chair for meals, up with assistance with FWW. 6. Continue home medications. 7. DVT prophylaxis: CHARISSE Maguire. Aspirin daily. 8. PT/OT evaluate and treat if needed. 9. Discharge planning: NH placement, he had been at [facility] about 3 years ago after he had a femur fracture for rehab. 10. Cerumen impaction: debrox drops 4 gtts to both ears daily for 3 days, then irrigate. 11. CODE status: DNR/DNI. - Mortality Measure Prognosis:: Good
[2020-04-23] MEDS ORDERED: Diphtheria,Pertussis(Acell),Tetanus Vaccine 0.5 ML Syringe ONE (18:51)
[2020-04-23] MEDS: Tamsulosin 0.4 MG Cap.ER PO SCH (20:22)
[2020-04-23] MEDS: Memantine 10 MG Tab PO SCH (20:22)
[2020-04-23] MEDS: Sennosides 8.6 MG Tab PO SCH (20:22)
[2020-04-23] MEDS: Donepezil 10 MG Tab PO SCH (20:22)
[2020-04-23] MEDS ORDERED: Memantine 10 MG Tab PO SCH (21:00)
[2020-04-24] MEDS: Aspirin 81 MG Tab.EC PO SCH (08:22)
[2020-04-24] MEDS: Furosemide 20 MG Tab PO SCH (08:22)
[2020-04-24] MEDS: Memantine 10 MG Tab PO SCH ×2 (08:23→20:00)
[2020-04-24] MEDS: Metoprolol Tartrate 25 MG Tab PO SCH (08:23)
[2020-04-24] MEDS: Cholecalciferol (Vitamin D3) 25 MCG Tab PO SCH (08:23)
[2020-04-24] MEDS: Calcium Carbonate 500 MG Tablet PO SCH (08:23)
[2020-04-24] MEDS: Sennosides 8.6 MG Tab PO SCH ×2 (08:23→19:59)
[2020-04-24] MEDS: Carbamide Peroxide 6.5% Otic Soln 15 ML Bottle EARBOTH SCH (08:24)
--- NOTE | 2020-04-24 09:57 | PCM.PN ---
- General Info Date of Service: 04/24/20 Subjective Update: Porfirio pulled his IV out couple times last night, currently he is leaving it in. He did come out to the nurses station last night by himself. No falls. Denies any pain. Breakfast ate 100% on his own. He is unbalanced when he is ambulating even with FWW. - Patient Data Vitals - Most Recent: Last Vital Signs Temp 97.3 F 04/24/20 08:00 Pulse 71 04/24/20 08:23 Resp 18 04/24/20 08:00 BP 119/69 04/24/20 08:23 Pulse Ox 93 L 04/24/20 08:00 Weight - Most Recent: 188 lb 6.4 oz I&O - Last 24 Hours: Intake & Output 04/23/20 04/24/20 04/24/20 22:59 06:59 14:59 Intake Total 630 Balance 630 Lab Results Last 24 Hours: Laboratory Results - last 24 hr 04/23/20 04/23/20 04/23/20 Range/Units 15:05 15:05 15:05 WBC 5.5 (4.5-12.0) X10-3/uL RBC 3.77 L (4.30-5.75) x10(6)uL Hgb 11.9 L (13.5-17.8) g/dL Hct 34.0 (30.0-51.3) % MCV 90.2 (80-96) fL MCH 31.5 (27.7-33.6) pg MCHC 34.9 (32.2-35.4) g/dL RDW 15.8 H (11.5-15.5) % Plt Count 166 (125-369) X10(3)uL MPV 6.8 L (7.4-10.4) fL Neut % (Auto) 70.4 (46-82) % Lymph % (Auto) 13.9 (13-37) % [place] % (Auto) 12.8 H (4-12) % Eos % (Auto) 3 (1.0-5.0) % Baso % (Auto) 0 (0-2) % Neut # (Auto) 3.9 (1.6-8.3) # Lymph # (Auto) 0.8 (0.6-5.0) # Otero # (Auto) 0.7 (0.0-1.3) # Eos # (Auto) 0.1 (0.0-0.8) # Baso # (Auto) 0.0 (0.0-0.2) # Sodium 135 (135-145) mmol/L Potassium 4.2 (3.5-5.3) mmol/L Chloride 100 (100-110) mmol/L Carbon Dioxide 26 (21-32) mmol/L BUN 22 H (7-18) mg/dL Creatinine 1.8 H (0.70-1.30) mg/dL Est Cr Clr Drug Dosing TNP Estimated GFR (MDRD) 36 L (>60) BUN/Creatinine Ratio 12.2 (9-20) Glucose 98 (80-116) mg/dL Calcium 8.7 (8.6-10.2) mg/dL Total Bilirubin 0.8 (0.1-1.3) mg/dL AST 17 D (5-25) IU/L ALT 13 D (12-36) U/L Alkaline Phosphatase 59 (56-112) IU/L C-Reactive Protein 2.3 H (0.5-0.9) mg/dL Total Protein 7.4 (6.0-8.0) g/dL Albumin 3.4 (3.2-4.6) g/dL Globulin 4.0 g/dL Albumin/Globulin Ratio 0.9 Urine Color (YELLOW) Urine Appearance (CLEAR) Urine pH (5.0-6.5) Ur Specific [place] (1.010-1.025) Urine Protein (NEGATIVE) mg/dL Urine Glucose (UA) (NORMAL) mg/dL Urine Ketones (NEGATIVE) mg/dL Urine Occult Blood (NEGATIVE) Urine Nitrite (NEGATIVE) Urine Bilirubin (NEGATIVE) Urine Urobilinogen (NEGATIVE) mg/dL Ur Leukocyte Esterase (NEGATIVE) Urine RBC (0-5) Urine WBC (0-5) Ur Squamous Epith Cells (NS,R,O) Urine Bacteria (NS) 04/23/20 04/24/20 Range/Units 16:00 06:25 WBC (4.5-12.0) X10-3/uL RBC (4.30-5.75) x10(6)uL Hgb (13.5-17.8) g/dL Hct (30.0-51.3) % MCV (80-96) fL MCH (27.7-33.6) pg MCHC (32.2-35.4) g/dL RDW (11.5-15.5) % Plt Count (125-369) X10(3)uL MPV (7.4-10.4) fL Neut % (Auto) (46-82) % Lymph % (Auto) (13-37) % [place] % (Auto) (4-12) % Eos % (Auto) (1.0-5.0) % Baso % (Auto) (0-2) % Neut # (Auto) (1.6-8.3) # Lymph # (Auto) (0.6-5.0) # Otero # (Auto) (0.0-1.3) # Eos # (Auto) (0.0-0.8) # Baso # (Auto) (0.0-0.2) # Sodium 137 (135-145) mmol/L Potassium 3.8 (3.5-5.3) mmol/L Chloride 104 (100-110) mmol/L Carbon Dioxide 23 (21-32) mmol/L BUN 21 H (7-18) mg/dL Creatinine 1.6 H (0.70-1.30) mg/dL Est Cr Clr Drug Dosing 37.45 Estimated GFR (MDRD) 41 L (>60) BUN/Creatinine Ratio 13.1 (9-20) Glucose 107 (80-116) mg/dL Calcium 8.3 L (8.6-10.2) mg/dL Total Bilirubin (0.1-1.3) mg/dL AST (5-25) IU/L ALT (12-36) U/L Alkaline Phosphatase (56-112) IU/L C-Reactive Protein (0.5-0.9) mg/dL Total Protein (6.0-8.0) g/dL Albumin (3.2-4.6) g/dL Globulin g/dL Albumin/Globulin Ratio Urine Color Yellow (YELLOW) Urine Appearance Clear (CLEAR) Urine pH 6.0 (5.0-6.5) Ur Specific [place] 1.015 (1.010-1.025) Urine Protein Negative (NEGATIVE) mg/dL Urine Glucose (UA) Normal (NORMAL) mg/dL Urine Ketones Negative (NEGATIVE) mg/dL Urine Occult Blood Negative (NEGATIVE) Urine Nitrite Negative (NEGATIVE) Urine Bilirubin Negative (NEGATIVE) Urine Urobilinogen Normal (NEGATIVE) mg/dL Ur Leukocyte Esterase Negative (NEGATIVE) Urine RBC 0-5 (0-5) Urine WBC 0-5 (0-5) Ur Squamous Epith Cells Rare (NS,R,O) Urine Bacteria Rare H (NS) Jack Results Last 24 Hours: Microbiology 04/23/20 16:00 Urine Culture - Preliminary Urine, Catheterized No Growth Med Orders - Current: Current Medications Aspirin (Halfprin) 81 mg PO DAILY [facility] Last Admin: 04/24/20 08:22 Dose: 81 mg Documented by: Calcium Carbonate/Glycine (Oyster Shell Calcium) 500 mg PO DAILY [facility] Last Admin: 04/24/20 08:23 Dose: 500 mg Documented by: Carbamide Perox/Anhydrous Glycerin (Debrox 6.5% Otic Soln) 1 ml EARBOTH DAILY [facility] Stop: 04/27/20 09:01 Last Admin: 04/24/20 08:24 Dose: 6.5 drop Documented by: Cholecalciferol (Vitamin D3) 25 mcg PO DAILY [facility] Last Admin: 04/24/20 08:23 Dose: 25 mcg Documented by: Donepezil HCl (Aricept) 10 mg PO BEDTIME [facility] Last Admin: 04/23/20 20:22 Dose: 10 mg Documented by: Furosemide (Lasix) 20 mg PO DAILY [facility] Last Admin: 04/24/20 08:22 Dose: 20 mg Documented by: Sodium Chloride (Normal Saline) 1,000 mls @ 100 mls/hr IV ASDIRECTED [facility] Last Admin: 04/24/20 00:00 Dose: 100 mls/hr Documented by: Memantine (Namenda) 10 mg PO BID [facility] Last Admin: 04/24/20 08:23 Dose: 10 mg Documented by: Metoprolol Tartrate (Lopressor) 25 mg PO DAILY [facility] Last Admin: 04/24/20 08:23 Dose: 25 mg Documented by: Senna (Senna) 8.6 mg PO BID [facility] Last Admin: 04/24/20 08:23 Dose: 8.6 mg Documented by: Sodium Chloride (Saline Flush) 10 ml FLUSH ASDIRECTED PRN PRN Reason: Keep Vein Open Last Admin: 04/23/20 19:36 Dose: 10 ml Documented by: Tamsulosin HCl (Flomax) 0.4 mg PO BEDTIME [facility] Last Admin: 04/23/20 20:22 Dose: 0.4 mg Documented by: Discontinued Medications Diphtheria/Tetanus/Acell Pertussis (Adacel) 0.5 ml IM .ONCE ONE Stop: 04/23/20 16:02 Last Admin: 04/23/20 19:15 Dose: Not Given Documented by: Diphtheria/Tetanus/Acell Pertussis (Boostrix) Confirm Administered Dose 0.5 ml .ROUTE .STK-MED ONE Stop: 04/23/20 18:52 Last Admin: 04/23/20 19:14 Dose: 0.5 ml Documented by: Memantine (Namenda) 21 mg PO BEDTIME [facility] - Exam General: Alert, Oriented (person), Cooperative, No Acute Distress Lungs: Clear to Auscultation, Normal Respiratory Effort Cardiovascular: Regular Rate, Regular Rhythm GI/Abdominal Exam: Normal Bowel Sounds, Soft, Non-Tender, No Distention Sepsis Event Note - Evaluation Sepsis Screening Result: No Definite Risk - Focused Exam Vital Signs: Vital Signs Temp Pulse Pulse Resp BP BP Pulse Ox 04/24/20 08:23 71 119/69 04/24/20 08:00 97.3 F 71 18 119/69 93 L 04/24/20 00:00 97.9 F 60 16 105/65 95 - Problem List & Annotations (1) Rapidly progressive weakness SNOMED Code(s): 32616222 Code(s): R53.1 - WEAKNESS Status: Acute Current Visit: Yes (2) Ambulatory dysfunction SNOMED Code(s): 587525962 Code(s): R26.2 - DIFFICULTY IN WALKING, NOT ELSEWHERE CLASSIFIED Status: Acute Current Visit: Yes (3) Closed head injury SNOMED Code(s): 918776267025 Code(s): S09.90XA - UNSPECIFIED INJURY OF HEAD, INITIAL ENCOUNTER Status: Acute Current Visit: Yes Qualifiers: Encounter type: initial encounter Qualified Code(s): S09.90XA - Unspecified injury of head, initial encounter (4) Multiple falls SNOMED Code(s): 097569419 Code(s): R29.6 - REPEATED FALLS Status: Acute Current Visit: Yes (5) Renal insufficiency SNOMED Code(s): 081333677, 518707005 Code(s): N28.9 - DISORDER OF KIDNEY AND URETER, UNSPECIFIED Status: Acute Current Visit: Yes (6) Dehydration SNOMED Code(s): 86582930 Code(s): E86.0 - DEHYDRATION Status: Acute Current Visit: Yes (7) Failure to thrive in adult SNOMED Code(s): 157050962 Code(s): R62.7 - ADULT FAILURE TO THRIVE Status: Acute Current Visit: Yes (8) Cerumen impaction SNOMED Code(s): 33425730 Code(s): H61.20 - IMPACTED CERUMEN, UNSPECIFIED EAR Status: Acute Current Visit: Yes - Problem List Review Problem List Initiated/Reviewed/Updated: Yes - My Orders Last 24 Hours: My Active Orders 04/23/20 Dinner Regular Diet [DIET] 04/23/20 17:07 Up With Assistance [RC] ASDIRECTED Up to Chair [RC] ASDIRECTED VTE/DVT Education [RC] Per Unit Routine Vital Signs [RC] 00,08,16 Consult to Case Management/Communications Supervisor [CONS] Routine OT Evaluation and Treatment [CONS] Routine PT Evaluation and Treatment [CONS] Routine Sodium Chloride 0.9% [Saline Flush] 10 ml FLUSH ASDIRECTED PRN Saline Lock Insert [OM.PC] Routine Resuscitation Status Routine 04/23/20 17:08 Antiembolic Hose [OM.PC] Per Unit Routine 04/23/20 17:15 Sodium Chloride 0.9% [Normal Saline] 1,000 ml IV ASDIRECTED 04/23/20 21:00 Donepezil [Aricept] 10 mg PO BEDTIME Memantine [Namenda] 10 mg PO BID Sennosides [Senna] 8.6 mg PO BID Tamsulosin [Flomax] 0.4 mg PO BEDTIME 04/24/20 09:00 Aspirin [Halfprin] 81 mg PO DAILY Calcium Carbonate [Oyster Shell Calcium] 500 mg PO DAILY Carbamide Peroxide [Debrox 6.5% Otic Soln] 1 ml EARBOTH DAILY Cholecalciferol (Vitamin D3) [Vitamin D3] 25 mcg PO DAILY Furosemide [Lasix] 20 mg PO DAILY Metoprolol Tartrate [Lopressor] 25 mg PO DAILY - Plan Plan:: 1. UA was negative. 2. Renal insufficiency, most likely secondary to dehydration. Cr 1.6 improved, NS at 100 ml/hr as long as he will keep the IV. If he pulls IV again, will just discontinue fluids. 3. Regular diet. 4. Activity: up to chair for meals, up with assistance with FWW. 5. Continue home medications. 6. PT/OT evaluate and treat if needed. 7. Discharge planning: NH placement, he had been at [facility] about 3 years ago after he had a femur fracture for rehab.
[2020-04-24] MEDS: Sodium Chloride 0.9% 1,000 ML IV SCH ×5 (10:00→20:00)
[2020-04-24] MEDS: Donepezil 10 MG Tab PO SCH (19:59)
[2020-04-24] MEDS: Tamsulosin 0.4 MG Cap.ER PO SCH (19:59)
[2020-04-25] MEDS: Sodium Chloride 0.9% 1,000 ML IV SCH (05:41)
--- NOTE | 2020-04-25 09:05 | PCM.PN ---
- General Info Date of Service: 04/25/20 Subjective Update: No issues reported overnight. Has left the IV in, ate 100% of his breakfast this morning. No complaints of pain. Did ask when his was coming in. - Patient Data Vitals - Most Recent: Last Vital Signs Temp 98.1 F 04/25/20 05:30 Pulse 56 L 04/25/20 05:30 Resp 16 04/25/20 05:30 BP 113/65 04/25/20 05:30 Pulse Ox 96 04/25/20 05:30 Weight - Most Recent: 188 lb 6.4 oz I&O - Last 24 Hours: Intake & Output 04/24/20 04/25/20 04/25/20 22:59 06:59 14:59 Intake Total 1488 Output Total 0 Balance 1488 Lab Results Last 24 Hours: Laboratory Results - last 24 hr 04/25/20 Range/Units 08:20 Sodium 138 (135-145) mmol/L Potassium 3.9 (3.5-5.3) mmol/L Chloride 106 (100-110) mmol/L Carbon Dioxide 21 (21-32) mmol/L BUN 16 (7-18) mg/dL Creatinine 1.5 H (0.70-1.30) mg/dL Est Cr Clr Drug Dosing 39.95 mL/min Estimated GFR (MDRD) 44 L (>60) BUN/Creatinine Ratio 10.7 (9-20) Glucose 115 (80-116) mg/dL Calcium 7.7 L (8.6-10.2) mg/dL Jack Results Last 24 Hours: Microbiology 04/23/20 16:00 Urine Culture - Final Urine, Catheterized MIXED ROGER SUGGESTIVE OF CONTAMINATION. Med Orders - Current: Current Medications Aspirin (Halfprin) 81 mg PO DAILY [facility] Last Admin: 04/24/20 08:22 Dose: 81 mg Documented by: Calcium Carbonate/Glycine (Oyster Shell Calcium) 500 mg PO DAILY [facility] Last Admin: 04/24/20 08:23 Dose: 500 mg Documented by: Carbamide Perox/Anhydrous Glycerin (Debrox 6.5% Otic Soln) 1 ml EARBOTH DAILY [facility] Stop: 04/27/20 09:01 Last Admin: 04/24/20 08:24 Dose: 6.5 drop Documented by: Cholecalciferol (Vitamin D3) 25 mcg PO DAILY [facility] Last Admin: 04/24/20 08:23 Dose: 25 mcg Documented by: Donepezil HCl (Aricept) 10 mg PO BEDTIME [facility] Last Admin: 04/24/20 19:59 Dose: 10 mg Documented by: Furosemide (Lasix) 20 mg PO DAILY [facility] Last Admin: 04/24/20 08:22 Dose: 20 mg Documented by: Memantine (Namenda) 10 mg PO BID [facility] Last Admin: 04/24/20 20:00 Dose: 10 mg Documented by: Metoprolol Tartrate (Lopressor) 25 mg PO DAILY [facility] Last Admin: 04/24/20 08:23 Dose: 25 mg Documented by: Senna/Docusate Sodium (Senna Plus) 1 tab PO BID [facility] Sodium Chloride (Saline Flush) 10 ml FLUSH ASDIRECTED PRN PRN Reason: Keep Vein Open Last Admin: 04/23/20 19:36 Dose: 10 ml Documented by: Tamsulosin HCl (Flomax) 0.4 mg PO BEDTIME [facility] Last Admin: 04/24/20 19:59 Dose: 0.4 mg Documented by: Discontinued Medications Diphtheria/Tetanus/Acell Pertussis (Adacel) 0.5 ml IM .ONCE ONE Stop: 04/23/20 16:02 Last Admin: 04/23/20 19:15 Dose: Not Given Documented by: Diphtheria/Tetanus/Acell Pertussis (Boostrix) Confirm Administered Dose 0.5 ml .ROUTE .STK-MED ONE Stop: 04/23/20 18:52 Last Admin: 04/23/20 19:14 Dose: 0.5 ml Documented by: Sodium Chloride (Normal Saline) 1,000 mls @ 100 mls/hr IV ASDIRECTED [facility] Last Admin: 04/25/20 05:41 Dose: 100 mls/hr Documented by: Memantine (Namenda) 21 mg PO BEDTIME [facility] Senna (Senna) 8.6 mg PO BID [facility] Last Admin: 04/24/20 19:59 Dose: 8.6 mg Documented by: - Exam General: Alert, Oriented, Cooperative, No Acute Distress Lungs: Clear to Auscultation, Normal Respiratory Effort, Decreased Breath Sounds (bibasilar). No: Crackles, Wheezing Cardiovascular: Regular Rate, Regular Rhythm GI/Abdominal Exam: Normal Bowel Sounds, Soft, Non-Tender, No Distention Sepsis Event Note - Evaluation Sepsis Screening Result: No Definite Risk - Focused Exam Vital Signs: Vital Signs Temp Pulse Resp BP Pulse Ox 04/25/20 05:30 98.1 F 56 L 16 113/65 96 04/24/20 23:27 97.8 F 62 16 140/74 97 - Problem List & Annotations (1) Rapidly progressive weakness SNOMED Code(s): 92077351 Code(s): R53.1 - WEAKNESS Status: Acute Current Visit: Yes (2) Ambulatory dysfunction SNOMED Code(s): 290127419 Code(s): R26.2 - DIFFICULTY IN WALKING, NOT ELSEWHERE CLASSIFIED Status: Acute Current Visit: Yes (3) Closed head injury SNOMED Code(s): 488395013752 Code(s): S09.90XA - UNSPECIFIED INJURY OF HEAD, INITIAL ENCOUNTER Status: Acute Current Visit: Yes Qualifiers: Encounter type: initial encounter Qualified Code(s): S09.90XA - Unspecified injury of head, initial encounter (4) Multiple falls SNOMED Code(s): 134330314 Code(s): R29.6 - REPEATED FALLS Status: Acute Current Visit: Yes (5) Renal insufficiency SNOMED Code(s): 364291721, 493106353 Code(s): N28.9 - DISORDER OF KIDNEY AND URETER, UNSPECIFIED Status: Acute Current Visit: Yes (6) Dehydration SNOMED Code(s): 46058341 Code(s): E86.0 - DEHYDRATION Status: Acute Current Visit: Yes (7) Failure to thrive in adult SNOMED Code(s): 478213273 Code(s): R62.7 - ADULT FAILURE TO THRIVE Status: Acute Current Visit: Yes (8) Cerumen impaction SNOMED Code(s): 59876674 Code(s): H61.20 - IMPACTED CERUMEN, UNSPECIFIED EAR Status: Acute Current Visit: Yes - Problem List Review Problem List Initiated/Reviewed/Updated: Yes - My Orders Last 24 Hours: My Active Orders 04/24/20 09:00 Aspirin [Halfprin] 81 mg PO DAILY Calcium Carbonate [Oyster Shell Calcium] 500 mg PO DAILY Carbamide Peroxide [Debrox 6.5% Otic Soln] 1 ml EARBOTH DAILY Cholecalciferol (Vitamin D3) [Vitamin D3] 25 mcg PO DAILY Furosemide [Lasix] 20 mg PO DAILY Metoprolol Tartrate [Lopressor] 25 mg PO DAILY 04/25/20 08:51 Convert IV to Peripheral Lock [Convert IV to Saline Lock] [OM.PC] Routine 04/25/20 09:00 Docusate Sodium/Sennosides [Senna Plus] 1 tab PO BID - Plan Plan:: 1. UA was negative. Urine culture showed contamination. 2. Renal insufficiency improved. Cr 1.5 BUN 16. Convert to saline lock. 3. Regular diet. 4. Activity: up to chair for meals, up with assistance with FWW. 5. Continue home medications. 6. PT/OT evaluate and treat if needed. 7. Discharge planning: NH placement, he had been at [facility] about 3 years ago after he had a femur fracture for rehab.
[2020-04-25] MEDS: Calcium Carbonate 500 MG Tablet PO SCH (09:43)
[2020-04-25] MEDS: Memantine 10 MG Tab PO SCH ×2 (09:43→20:05)
[2020-04-25] MEDS: Metoprolol Tartrate 25 MG Tab PO SCH (09:43)
[2020-04-25] MEDS: Carbamide Peroxide 6.5% Otic Soln 15 ML Bottle EARBOTH SCH (09:43)
[2020-04-25] MEDS: Aspirin 81 MG Tab.EC PO SCH (09:43)
[2020-04-25] MEDS: Cholecalciferol (Vitamin D3) 25 MCG Tab PO SCH (09:44)
[2020-04-25] MEDS: Furosemide 20 MG Tab PO SCH (09:44)
[2020-04-25] MEDS: Donepezil 10 MG Tab PO SCH (20:04)
[2020-04-25] MEDS: Tamsulosin 0.4 MG Cap.ER PO SCH (20:05)
[2020-04-26] MEDS: Carbamide Peroxide 6.5% Otic Soln 15 ML Bottle EARBOTH SCH (08:42)
[2020-04-26] MEDS: Metoprolol Tartrate 25 MG Tab PO SCH (08:44)
[2020-04-26] MEDS: Aspirin 81 MG Tab.EC PO SCH (08:44)
[2020-04-26] MEDS: Furosemide 20 MG Tab PO SCH (08:44)
[2020-04-26] MEDS: Cholecalciferol (Vitamin D3) 25 MCG Tab PO SCH (08:46)
[2020-04-26] MEDS: Calcium Carbonate 500 MG Tablet PO SCH (08:46)
[2020-04-26] MEDS: Memantine 10 MG Tab PO SCH ×2 (08:46→20:24)
--- NOTE | 2020-04-26 10:04 | PCM.PN ---
- General Info Date of Service: 04/26/20 Subjective Update: He has been doing well, no issues overnight, ate 100% of his breakfast today. No complaints of pain. NO headaches. - Patient Data Vitals - Most Recent: Last Vital Signs Temp 98 F 04/26/20 08:44 Pulse 88 04/26/20 08:44 Resp 18 04/26/20 08:44 BP 109/68 04/26/20 08:44 Pulse Ox 96 04/26/20 08:44 Weight - Most Recent: 188 lb 6.4 oz Jack Results Last 24 Hours: Microbiology 04/23/20 16:00 Urine Culture - Final Urine, Catheterized MIXED ROGER SUGGESTIVE OF CONTAMINATION. Med Orders - Current: Current Medications Aspirin (Halfprin) 81 mg PO DAILY [facility] Last Admin: 04/26/20 08:44 Dose: 81 mg Documented by: Calcium Carbonate/Glycine (Oyster Shell Calcium) 500 mg PO DAILY [facility] Last Admin: 04/26/20 08:46 Dose: 500 mg Documented by: Carbamide Perox/Anhydrous Glycerin (Debrox 6.5% Otic Soln) 1 ml EARBOTH DAILY [facility] Stop: 04/27/20 09:01 Last Admin: 04/26/20 08:42 Dose: 1 drop Documented by: Cholecalciferol (Vitamin D3) 25 mcg PO DAILY [facility] Last Admin: 04/26/20 08:46 Dose: 25 mcg Documented by: Donepezil HCl (Aricept) 10 mg PO BEDTIME [facility] Last Admin: 04/25/20 20:04 Dose: 10 mg Documented by: Furosemide (Lasix) 20 mg PO DAILY [facility] Last Admin: 04/26/20 08:44 Dose: 20 mg Documented by: Memantine (Namenda) 10 mg PO BID [facility] Last Admin: 04/26/20 08:46 Dose: 10 mg Documented by: Metoprolol Tartrate (Lopressor) 25 mg PO DAILY [facility] Last Admin: 04/26/20 08:44 Dose: 25 mg Documented by: Senna/Docusate Sodium (Senna Plus) 1 tab PO BID [facility] Last Admin: 04/26/20 08:46 Dose: 1 tab Documented by: Sodium Chloride (Saline Flush) 10 ml FLUSH ASDIRECTED PRN PRN Reason: Keep Vein Open Last Admin: 04/23/20 19:36 Dose: 10 ml Documented by: Tamsulosin HCl (Flomax) 0.4 mg PO BEDTIME [facility] Last Admin: 04/25/20 20:05 Dose: 0.4 mg Documented by: Discontinued Medications Diphtheria/Tetanus/Acell Pertussis (Adacel) 0.5 ml IM .ONCE ONE Stop: 04/23/20 16:02 Last Admin: 04/23/20 19:15 Dose: Not Given Documented by: Diphtheria/Tetanus/Acell Pertussis (Boostrix) Confirm Administered Dose 0.5 ml .ROUTE .STK-MED ONE Stop: 04/23/20 18:52 Last Admin: 04/23/20 19:14 Dose: 0.5 ml Documented by: Sodium Chloride (Normal Saline) 1,000 mls @ 100 mls/hr IV ASDIRECTED [facility] Last Admin: 04/25/20 05:41 Dose: 100 mls/hr Documented by: Memantine (Namenda) 21 mg PO BEDTIME [facility] Senna (Senna) 8.6 mg PO BID [facility] Last Admin: 04/24/20 19:59 Dose: 8.6 mg Documented by: Tuberculin PPD (Aplisol) 5 unit IDERM ONETIME ONE Stop: 04/27/20 05:01 - Exam General: Alert, Oriented (pleasantly confused, oriented to person), Cooperative, No Acute Distress Lungs: Clear to Auscultation, Normal Respiratory Effort, Decreased Breath Sounds (bases, deep breaths then clears.). No: Wheezing Cardiovascular: Regular Rate, Regular Rhythm GI/Abdominal Exam: Normal Bowel Sounds, Soft, Non-Tender, No Distention Extremities: No Pedal Edema Sepsis Event Note - Evaluation Sepsis Screening Result: No Definite Risk - Focused Exam Vital Signs: Vital Signs Temp Pulse Pulse Resp BP BP Pulse Ox 04/26/20 08:44 98 F 88 88 18 109/68 109/68 96 04/26/20 08:00 97.7 F 70 16 139/64 96 04/26/20 00:00 98.0 F 66 16 116/64 97 - Problem List & Annotations (1) Rapidly progressive weakness SNOMED Code(s): 84476346 Code(s): R53.1 - WEAKNESS Status: Acute Current Visit: Yes (2) Ambulatory dysfunction SNOMED Code(s): 970695320 Code(s): R26.2 - DIFFICULTY IN WALKING, NOT ELSEWHERE CLASSIFIED Status: Acute Current Visit: Yes (3) Closed head injury SNOMED Code(s): 384752939046 Code(s): S09.90XA - UNSPECIFIED INJURY OF HEAD, INITIAL ENCOUNTER Status: Acute Current Visit: Yes Qualifiers: Encounter type: initial encounter Qualified Code(s): S09.90XA - Unspecified injury of head, initial encounter (4) Multiple falls SNOMED Code(s): 695990158 Code(s): R29.6 - REPEATED FALLS Status: Acute Current Visit: Yes (5) Renal insufficiency SNOMED Code(s): 672068373, 466094228 Code(s): N28.9 - DISORDER OF KIDNEY AND URETER, UNSPECIFIED Status: Acute Current Visit: Yes (6) Dehydration SNOMED Code(s): 71256186 Code(s): E86.0 - DEHYDRATION Status: Resolved Current Visit: Yes (7) Failure to thrive in adult SNOMED Code(s): 588754117 Code(s): R62.7 - ADULT FAILURE TO THRIVE Status: Acute Current Visit: Yes (8) Cerumen impaction SNOMED Code(s): 68387417 Code(s): H61.20 - IMPACTED CERUMEN, UNSPECIFIED EAR Status: Acute Current Visit: Yes Qualifiers: Laterality: bilateral Qualified Code(s): H61.23 - Impacted cerumen, bilateral - Problem List Review Problem List Initiated/Reviewed/Updated: Yes - My Orders Last 24 Hours: My Active Orders 04/25/20 09:00 Docusate Sodium/Sennosides [Senna Plus] 1 tab PO BID 04/27/20 05:00 CORONAVIRUS COVID-19, CHELSIE Routine - Plan Plan:: [facility] have accepted him, will go tomorrow morning at 9am, will need Covid screen day of discharge. Had negative Chest x-ray on Admission so will not need Tuberculin test before he goes. Would need PT/OT at [facility].
[2020-04-26] MEDS: Tamsulosin 0.4 MG Cap.ER PO SCH (20:24)
[2020-04-26] MEDS: Donepezil 10 MG Tab PO SCH (20:24)
[2020-04-27] MEDS ORDERED: Tuberculin, PPD 5 Units/0.1 ML 1 ML MDV IDERM ONE (05:00)
[2020-04-27] MEDS: Carbamide Peroxide 6.5% Otic Soln 15 ML Bottle EARBOTH SCH (08:05)
[2020-04-27] MEDS: Aspirin 81 MG Tab.EC PO SCH (08:05)
[2020-04-27] MEDS: Metoprolol Tartrate 25 MG Tab PO SCH (08:06)
[2020-04-27] MEDS: Furosemide 20 MG Tab PO SCH (08:06)
[2020-04-27] MEDS: Cholecalciferol (Vitamin D3) 25 MCG Tab PO SCH (08:07)
[2020-04-27] MEDS: Calcium Carbonate 500 MG Tablet PO SCH (08:07)
[2020-04-27] MEDS: Memantine 10 MG Tab PO SCH (08:07)
--- NOTE | 2020-04-27 08:31 | PCM.DCSUM1 ---
Discharge Summary - Hospital Course HPI Initial Comments: Profirio presented to ER brought by his for progressive decline for the past 2 weeks, has had more falls. Went to [facility] on , had flu shot, ears checked, cerumen impaction advised to use baby oil and return next week for recheck. Discussion was made with PCP about senior living due to his progressing decline and becoming more than what his can handle. She is his primary caregiver, 3 children live close by and their son has stopped by the past few days to help her get him up. She stated that at the clinic visit she did not want senior living placement but when they got home, he fell in the garage. He had superficial laceration to crown of his head, treated with steri-strips. He denies any pain, always cold. No fevers, chills, cough, nausea, vomiting, diarrhea or rash. He tends to be on constipated side on stool softeners. Urina tion has been decreasing. He is hard of hearing has not been wearing hearing aids due to the build up of ear wax. No dentures. His does his dressing, bathing(sponge baths), medications, finances, makes his meals. He has been eating smaller amounts over the past few months, drinks very little, he does feed himself. Uses a front wheel walker at home, goes to the bathroom, lift chair and bed; she states that is the limit of his activity. He does sleep quite a bit, will sleep all night, takes naps after breakfast and lunch. He is not on any medications for depression, anxiety or any behaviors with his dementia on Aricept and Namenda. On Flomax for prostatic hypertrophy. He wears incontinent briefs so she does not have to get him up at night. Majority of history is obtained from ER provider and his . Diagnosis: Stroke: No - Discharge Data Discharge Date: 04/27/20 Discharge Disposition: DC/Tfer to [facility] Condition: Good - Referral to Home Health Date of Face to Face Encounter: 04/27/20 Reason for Homebound Status: [facility] Primary Care Physician: Kishor Candelario MD Skilled Need: PT/OT - Discharge Diagnosis/Problem(s) (1) Rapidly progressive weakness SNOMED Code(s): 64283153 ICD Code: R53.1 - WEAKNESS Status: Acute Current Visit: Yes (2) Ambulatory dysfunction SNOMED Code(s): 131631388 ICD Code: R26.2 - DIFFICULTY IN WALKING, NOT ELSEWHERE CLASSIFIED Status: Acute Current Visit: Yes (3) Closed head injury SNOMED Code(s): 929787323105 ICD Code: S09.90XA - UNSPECIFIED INJURY OF HEAD, INITIAL ENCOUNTER Status: Acute Current Visit: Yes Qualifiers: Encounter type: initial encounter Qualified Code(s): S09.90XA - Unspecified injury of head, initial encounter (4) Multiple falls SNOMED Code(s): 203116301 ICD Code: R29.6 - REPEATED FALLS Status: Acute Current Visit: Yes (5) Renal insufficiency SNOMED Code(s): 861114440, 872141944 ICD Code: N28.9 - DISORDER OF KIDNEY AND URETER, UNSPECIFIED Status: Chronic Current Visit: Yes (6) Dehydration SNOMED Code(s): 21587189 ICD Code: E86.0 - DEHYDRATION Status: Resolved Current Visit: Yes (7) Failure to thrive in adult SNOMED Code(s): 214649569 ICD Code: R62.7 - ADULT FAILURE TO THRIVE Status: Acute Current Visit: Yes (8) Cerumen impaction SNOMED Code(s): 02126862 ICD Code: H61.20 - IMPACTED CERUMEN, UNSPECIFIED EAR Status: Acute Current Visit: Yes Qualifiers: Laterality: bilateral Qualified Code(s): H61.23 - Impacted cerumen, bilateral - Patient Summary/Data Consults: Consultations 04/23/20 17:07 Consult to Case Management/Photography Assistant [CONS] Routine Comment: Physician Instructions: Service(s) to be Consulted: Case Management Case Management Specialty/Photography Assistant: Investment Fund Manager OT Evaluation and Treatment [CONS] Routine Please Evaluate and Treat. OT Reason for Consult: ADL's This query below is only for informational purposes and is not editable. Admission Diagnosis/Problem: Ambulatory dysfunction PT Evaluation and Treatment [CONS] Routine Please Evaluate and Treat. PT Reason for Consult: Ambulation This query below is only for informational purposes and is not editable. Admission Diagnosis/Problem: Ambulatory dysfunction Hospital Course: Admitted for recurrent falls, autonomic dysfunction, renal insufficiency, mild dehydration. Received IV fluids NS at 100 ml/hr, Creatinine improved from 1.8 to 1.5. IV fluids discontinued on 04/25. Had an episode the first night when he walked out to the nurses station without assistance, was able to redirect and get back to his bed safely. Had unsteady gait with getting up with nursing with FWW. PT/OT recommended continued therapies in senior living. He was able to feed himself. No drainage from scalp laceration, steri-strips in place, healing well. Bilateral cerumen impaction on admission, Debrox 4 drops daily during hospital stay, has appointment on in clinic for irrigation. He had recent decrease of his Metoprolol from 50 mg to 25 mg due to bradycardia in the clinic, he was low when he was admitted at 54, came up in 60s-70s, had 2 episodes of bradycardia on 04/25 early am, 57, 56 but has been 60-80s ever since. COVID screen for admission to [facility] done today, was negative. Had Chest x- ray in ER, was negative so did not require TB testing prior to admission to [facility]. - Patient Instructions Diet: Regular Diet as Tolerated Activity: As Tolerated Driving: Do Not Drive Showering/Bathing: May Shower Notify Provider of: Fever, Increased Pain, Swelling and Redness, Drainage, Nausea and/or Vomiting Other/Special Instructions: Admission to [facility]. SEE MAR. Follow up with Dr Candelario or Dr Hoffman in 1 week. - Discharge Plan *PRESCRIPTION DRUG MONITORING PROGRAM REVIEWED*: Not Applicable *COPY OF PRESCRIPTION DRUG MONITORING REPORT IN PATIENT ALEXANDER: Not Applicable Home Medications: Home Meds Aspirin [Halfprin] 81 mg PO DAILY 09/29/19 [History] Calcium Carbonate [Calcium] 500 mg PO DAILY 09/29/19 [History] Cholecalciferol (Vitamin D3) [Vitamin D3] 1,000 unit PO DAILY 09/29/19 [History] Donepezil HCl 10 mg PO BEDTIME 09/29/19 [History] Furosemide [Lasix] 20 mg PO DAILY 09/29/19 [History] Memantine HCl 21 mg PO BEDTIME 09/29/19 [History] Metoprolol Tartrate 25 mg PO DAILY 09/29/19 [History] Tamsulosin [Flomax] 0.4 mg PO BEDTIME 09/29/19 [History] Sennosides/Docusate Sodium [Senna-S] 1 tab PO BID 04/25/20 [History] Oxygen Therapy Mode: Room Air Patient Handouts: Ear Drops, Adult Forms: ED Department Discharge Referrals: Kishor Candelario MD [Primary Care Provider] - - Discharge Summary/Plan Comment DC Time >30 min.: No ([facility]) - General Info Date of Service: 04/27/20 Subjective Update: Kenny is sitting up for breakfast, feeding himself without difficulty. Pleasantly confused. Dressed and ready to go. No complaints of pain, headache. No issues overnight with nursing. - Patient Data Vitals - Most Recent: Last Vital Signs Temp 98.1 F 04/27/20 05:00 Pulse 69 04/27/20 08:06 Resp 16 04/27/20 05:00 BP 123/71 04/27/20 08:06 Pulse Ox 94 L 04/27/20 05:00 Weight - Most Recent: 188 lb 6.4 oz Lab Results - Last 24 hrs: Laboratory Results - last 24 hr 04/27/20 Range/Units 05:30 SARS-CoV-2 RNA (CHELSIE) Negative (NEGATIVE) Med Orders - Current: Current Medications Aspirin (Halfprin) 81 mg PO DAILY [facility] Last Admin: 04/27/20 08:05 Dose: 81 mg Documented by: Calcium Carbonate/Glycine (Oyster Shell Calcium) 500 mg PO DAILY [facility] Last Admin: 04/27/20 08:07 Dose: 500 mg Documented by: Carbamide Perox/Anhydrous Glycerin (Debrox 6.5% Otic Soln) 1 ml EARBOTH DAILY [facility] Stop: 04/27/20 09:01 Last Admin: 04/27/20 08:05 Dose: 1 drop Documented by: Cholecalciferol (Vitamin D3) 25 mcg PO DAILY [facility] Last Admin: 04/27/20 08:07 Dose: 25 mcg Documented by: Donepezil HCl (Aricept) 10 mg PO BEDTIME [facility] Last Admin: 04/26/20 20:24 Dose: 10 mg Documented by: Furosemide (Lasix) 20 mg PO DAILY [facility] Last Admin: 04/27/20 08:06 Dose: 20 mg Documented by: Memantine (Namenda) 10 mg PO BID [facility] Last Admin: 04/27/20 08:07 Dose: 10 mg Documented by: Metoprolol Tartrate (Lopressor) 25 mg PO DAILY [facility] Last Admin: 04/27/20 08:06 Dose: 25 mg Documented by: Senna/Docusate Sodium (Senna Plus) 1 tab PO BID [facility] Last Admin: 04/27/20 08:07 Dose: 1 tab Documented by: Sodium Chloride (Saline Flush) 10 ml FLUSH ASDIRECTED PRN PRN Reason: Keep Vein Open Last Admin: 04/23/20 19:36 Dose: 10 ml Documented by: Tamsulosin HCl (Flomax) 0.4 mg PO BEDTIME [facility] Last Admin: 04/26/20 20:24 Dose: 0.4 mg Documented by: Discontinued Medications Diphtheria/Tetanus/Acell Pertussis (Adacel) 0.5 ml IM .ONCE ONE Stop: 04/23/20 16:02 Last Admin: 04/23/20 19:15 Dose: Not Given Documented by: Diphtheria/Tetanus/Acell Pertussis (Boostrix) Confirm Administered Dose 0.5 ml .ROUTE .STK-MED ONE Stop: 04/23/20 18:52 Last Admin: 04/23/20 19:14 Dose: 0.5 ml Documented by: Sodium Chloride (Normal Saline) 1,000 mls @ 100 mls/hr IV ASDIRECTED [facility] Last Admin: 04/25/20 05:41 Dose: 100 mls/hr Documented by: Memantine (Namenda) 21 mg PO BEDTIME [facility] Senna (Senna) 8.6 mg PO BID [facility] Last Admin: 04/24/20 19:59 Dose: 8.6 mg Documented by: Tuberculin PPD (Aplisol) 5 unit IDERM ONETIME ONE Stop: 04/27/20 05:01 - Exam General: Reports: Alert, Oriented (to person, pleasantly confused.), [place] rative, No Acute Distress HEENT: Reports: Other (Bilateral hearing aids, hard of hearing) Lungs: Reports: Clear to Auscultation, Normal Respiratory Effort Cardiovascular: Reports: Regular Rate, Regular Rhythm GI/Abdominal Exam: Normal Bowel Sounds, Soft, Non-Tender, No Distention (Male) Exam: Deferred Rectal (Males) Exam: Deferred Extremities: No Pedal Edema (TEDs hose on BLE) Wound/Incisions: Reports: Healing Well, No Drainage Neurological: Reports: No New Focal Deficit, Normal Speech Psy/Mental Status: Reports: Alert, Normal Affect, Other (Pleasantly confused, cognitive impairment stable. No behaviors.)
== END 2020-04-27 09:05 | DRG 948 ==
LOC: FB.ED 13:18 → FB.MS 16:00 → UNDOADMIN 16:23 → FB.MS 16:23
PROVIDERS: ADMIT Family Medicine; ATTEND Family Medicine
DX: R53.1 Weakness (principal); R29.6 Repeated falls; E86.0 Dehydration; R62.7 Adult failure to thrive; H61.23 Impacted cerumen, bilateral; I10 Essential (primary) hypertension; N40.0 Benign prostatic hyperplasia without lower urinary tract symptoms; F03.90 Unspecified dementia, unspecified severity, without behavioral disturbance, psychotic disturbance, mood disturbance, and anxiety; Z96.651 Presence of right artificial knee joint; Z66 Do not resuscitate; S09.90XA Unspecified injury of head, initial encounter; Z20.828 Contact with and (suspected) exposure to other viral communicable diseases; W19.XXXA Unspecified fall, initial encounter; K59.00 Constipation, unspecified; R26.81 Unsteadiness on feet; S01.01XA Laceration without foreign body of scalp, initial encounter; R00.1 Bradycardia, unspecified; Z79.82 Long term (current) use of aspirin; Z79.899 Other long term (current) drug therapy; Z68.24 Body mass index [BMI] 24.0-24.9, adult
CPT/HCPCS: 36415; 70450; 71045; 72125; 80048; 80053; 81001; 85025; 86140; 87086; 90471; 90715; 97116-GP; 97161-GP; 97165-GO; 97535-GO; 99285-25; A9270-GY; J7030; U0002

== ENCOUNTER 2022-04-04 19:39 | Observation (INO) | payer MEDICARE, BC ==
[2022-04-04 20:26] LABS: ESTIMATED GFR 32 mL/min (>60)
[2022-04-04] MEDS ORDERED: Sodium Chloride 0.9% 10 ML Syringe FLUSH PRN (20:53)
[2022-04-04] MEDS ORDERED: Furosemide 40 MG/4 ML VIAL IVPUSH ONE (20:53)
[2022-04-04] MEDS ORDERED: Enoxaparin 30 MG/0.3 ML Syringe SUBCUT SCH (21:15)
[2022-04-05 06:59] LABS: ESTIMATED GFR 32 mL/min (>60)
== END 2022-04-05 13:10 ==
LOC: FB.ED 19:39 → FB.MS 21:07
PROVIDERS: ADMIT Family Medicine; ATTEND Family Medicine
DX: R55 Syncope and collapse (principal); G30.9 Alzheimer's disease, unspecified; F02.80 Dementia in other diseases classified elsewhere, unspecified severity, without behavioral disturbance, psychotic disturbance, mood disturbance, and anxiety; N18.32 Chronic kidney disease, stage 3b; I13.0 Hypertensive heart and chronic kidney disease with heart failure and stage 1 through stage 4 chronic kidney disease, or unspecified chronic kidney disease; E11.22 Type 2 diabetes mellitus with diabetic chronic kidney disease; I50.43 Acute on chronic combined systolic (congestive) and diastolic (congestive) heart failure; Z86.16 Personal history of COVID-19; Z88.7 Allergy status to serum and vaccine; Z79.899 Other long term (current) drug therapy; Z98.890 Other specified postprocedural states
CPT/HCPCS: 36415; 71045; 80048; 80053; 83880; 84484; 85025; 96372; 96374; 99217; 99220; 99285; 99285-25; G0378; J1650; J1940